=== PATIENT | female | born 1985 | race Two or more races ===

== ENCOUNTER 2021-02-28 17:04 | Emergency (ER) | payer SELFPAY ==
[~2021-02-28] VITALS: Ht 175.3 cm; Wt 78.0 kg
[2021-02-28 18:20] VITALS: BP 140/79
[2021-02-28] MEDS ORDERED: CYCL10TA9 PO (18:38)
[2021-02-28] MEDS ORDERED: IBUP-1955 PO (18:38)
== END 2021-02-28 18:49 | disposition home or self-care (01) ==
LOC: ER 17:11
DX: M54.50 Low back pain, unspecified (principal); M54.2 Cervicalgia; Z79.899 Other long term (current) drug therapy; V49.49XA Driver injured in collision with other motor vehicles in traffic accident, initial encounter; Y93.89 Activity, other specified; Y92.413 State road as the place of occurrence of the external cause; Y99.8 Other external cause status